=== PATIENT | female | born 1980 | race Caucasian/White ===

== ENCOUNTER 2016-11-08 03:11 | Emergency (ER) | payer BC ==
--- NOTE | ~2016-11-08 | CR72 ---
[facility] A Service of [facility] & [facility] RADIOLOGY TEXT RESULTS PATIENT: ELYSIA PHILIPPE LOCATION: [facility] : 78 UNIT #: [id number] AGE: [address]: Anne Triplett APRN SEX: F ORDER DR: [id number] [facility] [address] [place], [place] [address] [id number] E MR#: [id number] Acc #: [id number] NAME: ELYSIA PHILIPPE. : 1980 SEX: F STUDY DATE/TIME: 11/08/2016 4:03 UNIT: [facility] ROOM: STUDY DESCRIPTION: CR Chest Single View Portable Attending Physician: Anne Triplett A.P.R.N. Ordering Physician: Anne Triplett A.P.R.N. Primary Care Physician: No Primary Care Physician MEDICAL IMAGING REPORT This report is preliminary unless electronic signature is present EXAM Portable chest INDICATION Chest pain today. PROCEDURE Frontal view chest. COMPARISON 05/02/2015 FINDINGS Heart size normal. Lungs clear. No pleural fluid or pneumothorax. IMPRESSION No active process. Dictated by... Eyal Bridges M.D. THIS IS AN ELECTRONICALLY VERIFIED REPORT Eyal Bridges M.D. at 11/08/2016 10:09 PM NOEL/delroy TD: 11/08/2016 11:27 JOB #: [id number] MEDICAL IMAGING REPORT Page 1 of 1 COPY
--- NOTE | ~2016-11-08 | EKG ---
PATIENT: ELYSAI PHILIPPE UNIT #: [id number] Ventricular Rate: 80 BPM Atrial Rate: 80 BPM P-R Interval: 148 ms QRS Duration: 94 ms Q-T Interval: 390 ms QTC Calculation(Bezet): 449 ms P [place]: 65 degrees Calculated R [place]: 41 degrees Calculated T [place]: 44 degrees Diagnosis Line: Normal sinus rhythm Diagnosis Line: Normal ECG Diagnosis Line: No previous ECGs available Diagnosis Line: Confirmed by AMY PENG MD ([id number]) on Diagnosis Line: 11/08/2016 3:05:01 PM INTERPRETING MD: NAS
[~2016-11-08 03:11] MED LIST: ALPRAZOLAM PO; DIAZEPAM PO; KETOPROFEN PO; LORTAB 10/500 T1 TAB PO; ROBITUSSIN A-C-S1 ML PO; VICODIN PO; ZITHROMAX1 G/PKT PO
[2016-11-08 03:50] LABS: BASOPHIL# 0.1 X10e3 (0-0.3); BASOPHIL% 0.9 % (0-2.5); EOSINOPHIL# 0.1 X10e3 (0-0.7); EOSINOPHIL% 0.8 % (0.0-7.0); HEMATOCRIT 43.2 % (35.0-45.0); LYMPHOCYTE# 2.5 X10e3 (1.0-3.5); LYMPHOCYTE% 33.9 % (17.0-45.0); MEAN CELL VOLUME 84.9 FL (83-96); MEAN CORPUSCULAR HEMOGLOBIN 27.4 PG (28-34); MEAN CORPUSCULAR HGB CONC 32.3 g/dL (30-36); MEAN PLATELET VOLUME 8.5 FL (6.5-11.5); MONOCYTE# 0.4 X10e3 (0-1.0); NEUTROPHIL# 4.5 X10e3 (1.5-7.1); NEUTROPHIL% 59.4 % (40-75); PLATELET COUNT 263 X10e3 (140-420); RED BLOOD COUNT 5.09 X10e (3.90-5.30); RED CELL DISTRIBUTION WIDTH 13.6 % (11.0-15.5); WHITE BLOOD COUNT 7.5 X10e3 (4.0-10.5)
[2016-11-08 03:51] LABS: DIFF IND NO
[2016-11-08 03:55] LABS: POC - TROPONIN <0.05 ng/mL (<=0.05)
[2016-11-08 04:00] LABS: URINE SOURCE CLEAN CATCH
[2016-11-08 04:04] LABS: INR 1.1; PARTIAL THROMBOPLASTIN TIME 27.6 SECONDS (23.5-31.3); PROTHROMBIN TIME (PATIENT) 11.6 SECONDS (10.0-11.7)
[2016-11-08 04:04] LABS: URINE APPEARANCE CLEAR; URINE BILIRUBIN NEG (NEG); URINE BLOOD NEG (NEG); URINE COLOR YELLOW; URINE GLUCOSE NEG (NEG); URINE KETONE NEG (NEG); URINE LEUKOCYTE ESTERASE NEG (NEG); URINE NITRATE NEG (NEG); URINE PROTEIN NEG (NEG); URINE SPECIFIC GRAVITY 1.009 (1.003-1.035); URINE UROBILINOGEN 0.2 MG/DL (NEG)
[2016-11-08 04:06] LABS: CULTURE INDICATED? NO
[2016-11-08 04:18] LABS: ALBUMIN SERUM 3.9 g/dL (3.5-5.0); BILIRUBIN, DIRECT 0.1 mg/dL (0.0-0.2); BILIRUBIN,INDIRECT 0.1 mg/dL (0.0-0.9); BILIRUBIN,TOTAL 0.2 mg/dL (0.2-2.0); CALCIUM SERUM 9.1 mg/dL (8.4-10.2); CREATININE SERUM 0.8 mg/dL (0.6-1.4); GLOM FILT RATE Estimated 94.9 mL/min (>60); PROTEIN TOTAL SERUM 8.1 g/dL (6.0-8.3)
[2016-11-08 05:21] LABS: POC - CKMB <1.0 ng/mL (0.0-7.9); POC - TROPONIN <0.05 ng/mL (<=0.05)
== END 2016-11-08 05:46 | disposition home or self-care (01) ==
LOC: CED 03:11
PROVIDERS: Nurse Practitioner
DX: R07.89 Other chest pain (principal); F41.9 Anxiety disorder, unspecified; E66.9 Obesity, unspecified; Z98.51 Tubal ligation status; Z79.899 Other long term (current) drug therapy
CPT/HCPCS: 36415; 71010; 80048; 80076; 81003; 82553; 83690; 84484; 84703; 85025; 85610; 85730; 93005; 96374; 99285

== ENCOUNTER 2016-11-18 14:58 | Emergency (ER) | payer BC ==
--- NOTE | ~2016-11-18 | CR169 ---
[facility] A Service of [facility] & [facility] RADIOLOGY TEXT RESULTS PATIENT: ELYSIA PHILIPPE LOCATION: [facility] : 78 UNIT #: [id number] AGE: [address]: Mirian Jane APRN SEX: F ORDER DR: [id number] [facility] [address] [place], [place] [address] [id number] E MR#: [id number] Acc #: [id number] NAME: ELYSIA PHILIPPE. : 1980 SEX: F STUDY DATE/TIME: 11/18/2016 17:19 UNIT: [facility] ROOM: STUDY DESCRIPTION: CR Knee 2 Views Lt Attending Physician: Mirian Jane A.P.R.N. Ordering Physician: Yung Castillo M.D. Primary Care Physician: Primary Care Physician No MEDICAL IMAGING REPORT This report is preliminary unless electronic signature is present EXAM Knee left 2 views HISTORY Left knee pain, swelling and numbness. Pain began 5 days ago and swelling and numbness began yesterday. No known injury. FINDINGS Two views of the left knee are reviewed. There is a prior study from 12/01/2015. There is some limitation of the films by obesity. There is arthritis at the left knee with small osteophyte formation and narrowing of the medial tibiofemoral compartment. Because of the patient's obesity, I cannot evaluate well for the possibility of suprapatellar joint effusion. There is no acute fracture suspected or obvious bone destruction. There is some soft tissue stranding appreciated. IMPRESSION 1. Study is limited by the patient's morbid obesity. There is evidence of osteoarthritis with most apparent involvement at the medial tibiofemoral compartment. There is no acute fracture or dislocation. Unfortunately, because of the patient's size, the lateral view is suboptimal for evaluation of a suprapatellar effusion. No obvious effusion is seen. Please correlate further clinically. If the patient is a candidate for an MRI, it would be most helpful for evaluation for internal derangement. Dictated by... Veronika Franklin M.D. THIS IS AN ELECTRONICALLY VERIFIED REPORT Veronika Franklin M.D. at 11/19/2016 7:55 AM SAC/psc [facility] A Service of [facility] & [facility] RADIOLOGY TEXT RESULTS PATIENT: ELYSIA PHILIPPE LOCATION: [facility] : 78 UNIT #: [id number] AGE: [address]: Mirian Jane APRN SEX: F ORDER DR: TD: 11/19/2016 03:16 JOB #: [id number] MEDICAL IMAGING REPORT Page 1 of 1 COPY
== END 2016-11-18 18:15 | disposition home or self-care (01) ==
LOC: CED 14:58 → CFTX 14:58
DX: M25.562 Pain in left knee (principal); R60.0 Localized edema; R20.0 Anesthesia of skin; F41.9 Anxiety disorder, unspecified
CPT/HCPCS: 73560; 99283

== ENCOUNTER → 2016-11-19 | Outpatient (CLI) | payer BC ==
--- NOTE | ~2016-11-19 | US85 ---
[facility] A Service of [facility] & [facility] RADIOLOGY TEXT RESULTS PATIENT: ELYSIA PHILIPPE LOCATION: [facility] : 78 UNIT #: [id number] AGE: [address]: Mirian Jane APRN SEX: F ORDER DR: [id number] [facility] [address] [place], [place] [address] [id number] O MR#: [id number] Acc #: [id number] NAME: ELYSIA PHILIPPE. : 1980 SEX: F STUDY DATE/TIME: 11/19/2016 14:13 UNIT: [facility] ROOM: STUDY [place] [facility] [place] [facility] [place] Attending Physician: Mirian Jane A.P.R.N. Referring Physician: Mirian Jane A.P.R.N. Ordering Physician: Mirian Jane A.P.R.N. Primary Care Physician: Valeria Mathews M.D. MEDICAL IMAGING REPORT This report is preliminary unless electronic signature is present EXAM Left lower extremity venous duplex 11/19/2016 HISTORY Left lower extremity pain and edema for 2 days at ankle and foot. No known injury. Evaluate for deep vein thrombosis. TECHNIQUE Venous ultrasound examination of the left lower extremity was performed using grayscale, spectral Doppler and color flow Doppler imaging. FINDINGS The examination is negative. There is no evidence of left lower extremity deep venous thrombus from the groin to the lower calf. Visualized greater saphenous vein is also patent. IMPRESSION Negative examination. No evidence of left lower extremity deep venous thrombosis. Dictated by... Yazan Juan M.D. THIS IS AN ELECTRONICALLY VERIFIED REPORT Yazan Juan M.D. at 11/21/2016 8:03 AM Erik TD: 11/19/2016 18:44 JOB #: [id number] MEDICAL IMAGING REPORT Page 1 of 1 COPY
== END | disposition home or self-care (01) ==
LOC: CNIV 13:22
DX: M79.89 Other specified soft tissue disorders (principal)
CPT/HCPCS: 93971